=== PATIENT | female | born 1995 | race Two or more races ===

== ENCOUNTER 2019-02-02 19:58 | Emergency (ER) | payer BC ==
[~2019-02-02] VITALS: Ht 175.3 cm; Wt 90.7 kg
[~2019-02-02 19:58] MED LIST: ALBU2.5V8 INH; BREO ELLIPTA 21 EACH IH; CYCL5TAB PO; EPIPEN0.3 MG/0.3 IJ; LORA10TA3 PO
[2019-02-02 20:12] VITALS: BP 165/105
--- NOTE | 2019-02-02 20:24 | PHYS DOC ---
Past Medical History Past Medical History: Asthma (JAMIL MCPHERSON) Past Surgical History: Tonsillectomy (JAMIL MCPHERSON) Alcohol Use: Occasionally Drug Use: None (JAMIL MCPHERSON) Adult General Chief Complaint Chief Complaint: SHORTNESS OF BREATH [facility] HPI Patient is a 23 year old female with a history of asthma presents to the ED complaining of shortness of breath �2 days. Patient states she was seen at [facility] ER earlier today. States they gave her a Medrol Dosepak and sent her home. States she has shortness of breath and used her ProAir inhaler more than she should so she came to the ED via EMS. Associated symptoms include cough. No history of asthma admissions or intubations. She got a DuoNeb treatment on the way to the ED and is feeling much better. Denies fever, nausea/vomiting, chest pain, dizziness, weakness, lower leg swelling. (JAMIL MCPHERSON) Review of Systems Review of Systems Constitutional: Denies fever or chills [] Eyes: Denies change in visual acuity, redness, or eye pain [] HENT: Denies nasal congestion or sore throat [] Respiratory: Complains of cough and shortness of breath. Cardiovascular: No additional information not addressed in HPI [] GI: Denies abdominal pain, nausea, vomiting, bloody stools or diarrhea [] : Denies dysuria or hematuria [] Musculoskeletal: Denies back pain or joint pain [] Integument: Denies rash or skin lesions [] Neurologic: Denies headache, focal weakness or sensory changes [] All other systems were reviewed and found to be within normal limits, except as documented in this note. (JAMIL MCPHERSON) Current Medications Current Medications Current Medications Medications (Trade) Dose Ordered Sig/Socorro Start Time Stop Time Status Last Admin Dose Admin Methylprednisolone Sodium Succinate (SOLU-Medrol 125MG VIAL) 125 mg 1X ONCE 02/02/19 20:30 02/02/19 20:31 DC 02/02/19 20:44 125 MG (PAUL JOHNSTON DO) Allergies Allergies Allergies Coded Allergies Type Severity Reaction Last Updated Verified peanut Allergy Severe anaphylaxis 03/19/17 Yes Egg Derived Adverse Reaction Intermediate diarrhea 03/19/17 Yes (PAUL JOHNSTON DO) Physical Exam Physical Exam Constitutional: Well developed, well nourished, no acute distress, non-toxic appearance. [] HENT: Normocephalic, atraumatic, bilateral external ears normal, oropharynx moist, no oral exudates, nose normal. [] Eyes: PERRLA, EOMI, conjunctiva normal, no discharge. [] Neck: Normal range of motion, no tenderness, supple, no stridor. [] Cardiovascular:Heart rate regular rhythm, no murmur [] Lungs & Thorax: Mild wheezing bilaterally. [] Abdomen: Bowel sounds normal, soft, no tenderness, no masses, no pulsatile masses. [] Skin: Warm, dry, no erythema, no rash. [] Back: No tenderness, no CVA tenderness. [] Extremities: No tenderness, no cyanosis, no clubbing, ROM intact, no edema. [] Neurologic: Alert and oriented X 3, normal motor function, normal sensory function, no focal deficits noted. [] Psychologic: Affect normal, judgement normal, mood normal. [] (JAMIL MCPHERSON) Current Patient Data Vital Signs Vital Signs Date Time Temp Pulse Resp B/P (MAP) Pulse Ox O2 Delivery O2 Flow Rate FiO2 02/02/19 20:12 98.9 122 20 165/105 (125) 98 Room Air 98.9 (PAUL JOHNSTON DO) EKG EKG [] (JAMIL MCPHERSON) Radiology/Procedures Radiology/Procedures [] (JAMIL MCPHERSON) Radiology/Procedures CXR AP (preliminary interpretation by ED physician): No acute process (PAUL JOHNSTON DO) Course & Med Decision Making Course & Med Decision Making Pertinent Labs and Imaging studies reviewed. (See chart for details) []Discussed imaging findings with patient. Attending physician reviewed chest XR. Patient's shortness of breath improved with DuoNeb and steroids given here in the ED. States she is feeling much better. On reexamination, patient is not tachypneic or tachycardic. O2 saturation is 97% on RA. Patient well-appearing. We'll treat outpatient with Z-Bayron, cough suppressant and pro-air inhaler. Currently on prednisone at home. Discussed follow-up with PCP this week. Provided contact information/education. Discussed reasons to return to the ED. Patient understands and agrees with plan. (JAMIL MCPHERSON) Dragon Disclaimer Dragon Disclaimer This electronic medical record was generated, in whole or in part, using a voice recognition dictation system. (JAMIL MCPHERSON) Departure Departure Impression: Primary Impression: Asthma exacerbation Additional Impression: Acute bronchitis Disposition: 01 HOME, SELF-CARE Condition: IMPROVED Referrals: NO PCP (PCP) PAUL SHAH MD Patient Instructions: Acute Bronchitis, Asthma, Adult Scripts Guaifenesin/Codeine Phosphate (GUAIFENESIN AC COUGH SYRUP) 473 Ml Liquid 5 ML PO Q4HRS, #60 ML Prov: JAMIL MCPHERSON 02/02/19 Albuterol Sulfate (Proair Hfa) 8.5 Gm Hfa.aer.ad 1 PUFF INH PRN Q6HRS PRN for SHORTNESS OF BREATH, #1 INHALER Prov: JAMIL MCPHERSON 02/02/19 Azithromycin (AZITHROMYCIN TABLET) 250 Mg Tablet 1 PKG PO UD, #6 TAB Prov: JAMIL MCPHERSON 02/02/19 Attending Signature Attending Signature I have reviewed the PA/SUB MASTER's note and plan of care. I was available for consultation as needed during the patient's visit in the emergency department. I agree with the clinical impression, plan, and disposition. (PAUL JOHNSTON DO) Problem Qualifiers JAMIL MCPHERSON Feb 02, 2019 20:24 PAUL JOHNSTON DO Feb 03, 2019 01:32
[2019-02-02] MEDS ORDERED: methylPREDNISolone SOD SUCC PF 125 MG/2 ML VIAL. IM ONE (20:30)
[2019-02-02] MEDS ORDERED: ALBU2.5V8 INH (21:36)
[2019-02-02] MEDS ORDERED: AZIT250T6 PO (21:36)
[2019-02-02] MEDS ORDERED: GUAI473L15 PO (21:36)
--- NOTE | 2019-02-03 08:09 | RAD ---
EXAM: AP View of the chest DATE: 02/02/2019 8:25 PM INDICATION: Cough COMPARISON: No Prior FINDINGS: The heart is not enlarged. Mediastinal and hilar contours are normal. No focal parenchymal airspace opacity. No pleural effusion or pneumothorax. IMPRESSION: 1. No radiographic evidence for acute cardiopulmonary process. Electronically signed by: Dany Canales MD (02/03/2019 8:05 AM) [facility]
== END 2019-02-02 21:49 | disposition home or self-care (01) ==
LOC: ER 19:58
DX: J45.901 Unspecified asthma with (acute) exacerbation (principal); Z90.89 Acquired absence of other organs; Z91.010 Allergy to peanuts; Z91.012 Allergy to eggs
CPT/HCPCS: 71045; 96372; 99283; J2930

== ENCOUNTER 2019-02-24 10:46 | Emergency (ER) | payer BC ==
[~2019-02-24] VITALS: Ht 175.3 cm; Wt 90.7 kg
[~2019-02-24 10:46] MED LIST changes: +AZIT250T6 PO; +GUAI473L15 PO
[2019-02-24 11:00] VITALS: BP 138/75
[2019-02-24] MEDS ORDERED: KETOROLAC 60 MG/2 ML VIAL. IM ONE (12:30)
[2019-02-24] MEDS ORDERED: ORPHENADRINE CITRATE 60 MG/2 ML VIAL. IM ONE (12:30)
[2019-02-24] MEDS ORDERED: ORPH100T PO (12:31)
[2019-02-24] MEDS ORDERED: NAPR-514 PO (12:31)
--- NOTE | 2019-02-24 12:31 | PHYS DOC ---
Past Medical History Past Medical History: No Pertinent History, Asthma Past Surgical History: Tonsillectomy Alcohol Use: Occasionally Drug Use: None Adult General Chief Complaint Chief Complaint: LOWER BACK PAIN OR INJURY HPI HPI Patient is a 23 year old female who presents to the emergency department with complaints of low back pain and spasms. Patient states that she was taking her mother to the bathroom this morning when her mother fell on top of her at approximately 3:30 AM. patient states that when she fell her back landed on the pedal of her mother's wheelchair. Patient denies any saddle anesthesia, loss of bowel/bladder control, numbness, tingling, weakness, loss of consciousness, nausea, vomiting, or neck pain from the fall. She currently rates her pain as 8/10 on the pain scale and describes it as a spasm that increases with movement, there are no alleviating factors. All other ROS is negative unless otherwise documented in HPI. Review of Systems Review of Systems See Above Current Medications Current Medications Current Medications Medications (Trade) Dose Ordered Sig/Socorro Start Time Stop Time Status Last Admin Dose Admin Ketorolac Tromethamine (Toradol Im) 30 mg 1X ONCE 02/24/19 12:30 02/24/19 12:31 DC 02/24/19 12:33 30 MG Orphenadrine Citrate (Norflex) 60 mg 1X ONCE 02/24/19 12:30 02/24/19 12:31 DC 02/24/19 12:34 60 MG Allergies Allergies Allergies Coded Allergies Type Severity Reaction Last Updated Verified peanut Allergy Severe anaphylaxis 03/19/17 Yes Egg Derived Adverse Reaction Intermediate diarrhea 03/19/17 Yes Physical Exam Physical Exam See Above Constitutional: Well developed, well nourished, no acute distress, non-toxic appearance. [] HENT: Normocephalic, atraumatic, bilateral external ears normal, oropharynx moist, no oral exudates, nose normal. [] Eyes: PERRLA, EOMI, conjunctiva normal, no discharge. [] Neck: Normal range of motion, no stridor. [] Cardiovascular:Heart rate regular rhythm Lungs & Thorax: respirations even and unlabored, no retractions, no distress Skin: Warm, dry, no erythema, no rash, bruising, no abrasions [] Back: No bony tendernessn or deformity, no CVA tenderness; bilateral lumbar paraspinal tenderness to palpation. [] Extremities: No cyanosis, ROM intact, no edema. [] Neurologic: Alert and oriented X 3, no focal deficits noted. [] Psychologic: Affect normal, judgement normal, mood normal. [] Current Patient Data Vital Signs Vital Signs Date Time Temp Pulse Resp B/P (MAP) Pulse Ox O2 Delivery O2 Flow Rate FiO2 02/24/19 11:00 97.9 86 14 138/75 (96) 97 Room Air 97.9 EKG EKG [] Radiology/Procedures Radiology/Procedures [] Course & Med Decision Making Course & Med Decision Making Pertinent Labs and Imaging studies reviewed. (See chart for details) [] Dragon Disclaimer Dragon Disclaimer This electronic medical record was generated, in whole or in part, using a voice recognition dictation system. Departure Departure Impression: Primary Impression: Spasm of muscle of lower back Additional Impression: Low back pain Disposition: HOME, SELF-CARE Condition: STABLE Referrals: UNKNOWN PCP NAME (PCP) Patient Instructions: Back Pain, Adult Additional Instructions: Fill the prescriptions and use as directed. Follow up with your primary care doctor if symptoms persist, return to the ER if symptoms worsen. Scripts Naproxen (NAPROXEN) 500 Mg Tablet 1 TAB PO BID PRN for PAIN for 10 Days, #20 TAB 0 Refills Prov: SABINO KINGSLEY APRN 02/24/19 Orphenadrine Citrate (ORPHENADRINE CITRATE) 100 Mg Tablet.er 1 TAB PO BID for 10 Days, #20 TAB 0 Refills Prov: SABINO KINGSLEY APRN 02/24/19 Problem Qualifiers Additional Impression: Low back pain Chronicity: acute Back pain laterality: bilateral Sciatica presence: without sciatica Qualified Codes: M54.5 - Low back pain SABINO KINGSLEY APRN Feb 24, 2019 12:31
== END 2019-02-24 12:50 | disposition home or self-care (01) ==
LOC: ER 10:46
DX: M62.830 Muscle spasm of back (principal); M54.5 Low back pain; J45.909 Unspecified asthma, uncomplicated; Z91.010 Allergy to peanuts; Z91.012 Allergy to eggs
CPT/HCPCS: 96372; 99284; J1885; J2360